=== PATIENT | female | born 1975 | race Hispanic/Latino ===

== ENCOUNTER 2021-05-05 10:19 | Emergency (ER) | payer OTHER, SELFPAY ==
[2021-05-05] MEDS ORDERED: Azithromycin 250 MG TAB ONE (11:29)
[2021-05-05] MEDS ORDERED: Dexamethasone 4 MG TAB ONE (11:29)
== END 2021-05-05 11:44 | disposition home or self-care (01) ==
LOC: NAV ERS 10:19
DX: U07.1 COVID-19 (principal); J12.89 Other viral pneumonia
CPT/HCPCS: 71045; J8540